=== PATIENT | male | born 1935 | race Caucasian/White ===

== ENCOUNTER 2018-05-03 17:24 | Emergency (ER) | payer MEDICARE ==
[~2018-05-03] VITALS: Ht 167.6 cm; Wt 78.0 kg
[~2018-05-03 17:24] MED LIST: ACET1TAB33 PO; LEVO500 PO; PARO10TA71 PO; SIMV40TA5 PO; TNFMISC
[2018-05-03] MEDS ORDERED: CLOP75TA32 PO (17:39)
[2018-05-03] MEDS ORDERED: LEVO75TA10 PO (17:39)
[2018-05-03] MEDS ORDERED: ASPRIN PO (17:39)
[2018-05-03] MEDS ORDERED: TAMS0.4C32 PO (17:39)
[2018-05-03 18:08] LABS: GLUCOSE,POINT OF CARE 137 MG/DL (70-110)
[2018-05-03 18:26] LABS: HEMATOCRIT 43.7 % (41-53); HEMOGLOBIN 14.9 g/dL (13.5-17.5); MEAN CORPUSCULAR HEMOGLOBIN 31.4 pg (26.0-34.0); MEAN CORPUSCULAR HGB CONC 34.1 G/dL (31.0-37.0); MEAN CORPUSCULAR VOLUME 92 fL (80-100); PLATELET COUNT (AUTO) 184 K/uL (150-450); RED BLOOD CELL COUNT(AUTO) 4.75 MIL/uL (4.50-5.90)
[2018-05-03] MEDS ORDERED: SODIUM CHLORIDE 0.9% 1,000 ML IV ONE (18:30)
[2018-05-03 18:32] LABS: ANION GAP 10 mmol/L (8-16); CALCIUM, TOTAL 8.5 mg/dL (8.8-10.5); CARBON DIOXIDE 26 mmol/L (22-29); CHLORIDE 106 mmol/L (98-107); CREATININE 1.13 mg/dL (0.60-1.30); GLUCOSE,RANDOM 141 mg/dL (70-110); POTASSIUM 4.1 mmol/L (3.5-5.1); SODIUM SERUM 142 mmol/L (136-145); UREA NITROGEN, BLOOD 10 mg/dL (7-18)
[2018-05-03 18:33] LABS: GLOMERULAR FILTR. RATE CALC > 60 mL/min (>60)
[2018-05-03] MEDS ORDERED: ASPI81 PO (18:33)
[2018-05-03 18:38] LABS: ALANINE AMINOTRANSFERASE 20 U/L (12-78); ALBUMIN 3.5 g/dL (3.4-5.0); ALKALINE PHOSPHATASE 62 U/L (46-116); ASPARTATE AMINOTRANSFERASE 23 U/L (15-37); BILIRUBIN,TOTAL 0.5 mg/dL (0.1-1.0); CREATINE KINASE, TOTAL ONLY 75 U/L (39-308); TOTAL PROTEIN, SERUM 6.8 g/dL (6.4-8.2)
[2018-05-03 18:59] LABS: B-TYPE NATRIURETIC PEPTIDE 78 pg/mL (0-100)
[2018-05-03] MEDS ORDERED: SODIUM CHLORIDE 0.9% 2,000 ML IV ONE (19:00)
[2018-05-03] MEDS ORDERED: CefTRIAXone SODIUM 1 GM in DEXTROSE 5%-WATER 10 ML IV ONE (19:00)
[2018-05-03] MEDS ORDERED: ACETAMINOPHEN 500 MG TABLET PO ONE (19:00)
[2018-05-03 19:01] LABS: BAND NEUTROPHILS % (MANUAL) 16 % (0-5); EOSINOPHILS % (MANUAL) 1 % (1-6); LYMPHOCYTES % (MANUAL) 6 % (22-44); MONOCYTES % (MANUAL) 2 % (2-9); SEGMENTED NEUTROPHILS % 75 % (40-70)
[2018-05-03 19:02] LABS: PLATELET MORPHOLOGY COMMENT GIANT PLTS PRESENT
[2018-05-03 19:28] LABS: LIPASE 105 U/L (73-393)
[2018-05-03 19:30] LABS: PROTHROMBIN TIME 10.4 SEC (9.4-11.6)
[2018-05-03 20:06] LABS: LACTIC ACID 2.8 mmol/L (0.4-2.0)
[2018-05-03 21:12] VITALS: BP 110/50
[2018-05-03 21:43] LABS: APPEARANCE,URINE CLEAR (CLEAR); BILIRUBIN,URINE NEGATIVE (NEGATIVE); GLUCOSE, URINE (UA) NEGATIVE (NEGATIVE); KETONES,URINE NEGATIVE (NEGATIVE); LEUKOCYTE ESTERASE ,URINE NEGATIVE (NEGATIVE); NITRATE,URINE NEGATIVE (NEGATIVE); OCCULT BLOOD,URINE NEGATIVE (NEGATIVE); PH,URINE 6.5 (5.0-8.0); PROTEIN,URINE NEGATIVE (NEGATIVE)
== END 2018-05-03 22:43 | disposition short-term general hospital (02) ==
LOC: EMS 17:27
DX: A41.9 Sepsis, unspecified organism (principal); R55 Syncope and collapse; I11.9 Hypertensive heart disease without heart failure; E78.00 Pure hypercholesterolemia, unspecified; Z86.73 Personal history of transient ischemic attack (TIA), and cerebral infarction without residual deficits; Z90.49 Acquired absence of other specified parts of digestive tract; Z79.82 Long term (current) use of aspirin
CPT/HCPCS: 36415; 70450; 71045; 80053; 81003; 82550; 82962; 83605; 83690; 83880; 84484; 85025; 85610; 85730; 87040; 93005; 96361; 96374; 99291; J0696; J7030; J7060

== ENCOUNTER 2018-09-01 14:07 | Emergency (ER) | payer MEDICARE ==
[~2018-09-01] VITALS: Ht 165.1 cm; Wt 70.5 kg
[~2018-09-01 14:07] MED LIST changes: +ASPI81 PO; +CLOP75TA32 PO; -LEVO500 PO; +LEVO75TA10 PO; +TAMS0.4C32 PO; -TNFMISC
[2018-09-01] MEDS ORDERED: 0.9% SODIUM CHLORIDE 10 ML SYRINGE IVP PRN (16:45)
[2018-09-01 17:15] LABS: BASOPHILS % (AUTO) 0.8 % (0.0-2.0); EOSINOPHILS % (AUTO) 6.7 % (1.0-6.0); HEMATOCRIT 43.9 % (41-53); HEMOGLOBIN 14.9 g/dL (13.5-17.5); LYMPHOCYTES # (AUTO) 1.4 K/uL (1.0-4.8); LYMPHOCYTES % (AUTO) 25.4 % (22.0-44.0); MEAN CORPUSCULAR HEMOGLOBIN 30.3 pg (26.0-34.0); MEAN CORPUSCULAR VOLUME 89 fL (80-100); MONOCYTES # (AUTO) 0.3 K/uL (0.1-1.0); MONOCYTES % (AUTO) 5.4 % (2.0-9.0); NEUTROPHILS # (AUTO) 3.4 K/uL (1.8-7.7); NEUTROPHILS % (AUTO) 61.7 % (40.0-70.0); PLATELET COUNT (AUTO) 217 K/uL (150-450); RED BLOOD CELL COUNT(AUTO) 4.93 MIL/uL (4.50-5.90); RED CELL DISTRIBUTION WIDTH 14.3 % (11.5-14.5)
[2018-09-01 17:25] LABS: ANION GAP 8 mmol/L (8-16); CALCIUM, TOTAL 9.2 mg/dL (8.8-10.5); CARBON DIOXIDE 31 mmol/L (22-29); CHLORIDE 103 mmol/L (98-107); CREATININE 0.86 mg/dL (0.60-1.30); GLUCOSE,RANDOM 103 mg/dL (70-110); POTASSIUM 3.3 mmol/L (3.5-5.1); SODIUM SERUM 142 mmol/L (136-145); UREA NITROGEN, BLOOD 10 mg/dL (7-18)
[2018-09-01 17:26] LABS: GLOMERULAR FILTR. RATE CALC > 60 mL/min (>60)
[2018-09-01 17:31] LABS: ALANINE AMINOTRANSFERASE 15 U/L (12-78); ALBUMIN 3.8 g/dL (3.4-5.0); ALKALINE PHOSPHATASE 86 U/L (46-116); ASPARTATE AMINOTRANSFERASE 13 U/L (15-37); BILIRUBIN,TOTAL 0.5 mg/dL (0.1-1.0); CREATINE KINASE, TOTAL ONLY 44 U/L (39-308); TOTAL PROTEIN, SERUM 7.5 g/dL (6.4-8.2)
[2018-09-01 17:44] LABS: B-TYPE NATRIURETIC PEPTIDE 31 pg/mL (0-100)
[2018-09-01 17:47] LABS: LACTIC ACID 0.8 mmol/L (0.4-2.0)
[2018-09-01] MEDS ORDERED: POTASSIUM CHLORIDE 20 MEQ ER TABLET PO ONE (19:00)
[2018-09-01 20:28] LABS: APPEARANCE,URINE CLEAR (CLEAR); BILIRUBIN,URINE NEGATIVE (NEGATIVE); GLUCOSE, URINE (UA) NEGATIVE (NEGATIVE); KETONES,URINE NEGATIVE (NEGATIVE); LEUKOCYTE ESTERASE ,URINE SMALL (NEGATIVE); NITRATE,URINE NEGATIVE (NEGATIVE); OCCULT BLOOD,URINE NEGATIVE (NEGATIVE); PH,URINE 5.5 (5.0-8.0); PROTEIN,URINE NEGATIVE (NEGATIVE); UROBILINOGEN,URINE 0.2 mg/dL (<=1.0)
[2018-09-01 20:43] LABS: BACTERIA,URINE None Seen /HPF (None Seen); RBC,URINE 0-2 /HPF (0-2)
[2018-09-01 20:44] LABS: SQUAMOUS EPITHELIAL CELL,UR None Seen /LPF (None Seen)
[2018-09-01 21:02] VITALS: BP 169/80
== END 2018-09-01 22:03 | disposition home or self-care (01) ==
LOC: EMS 14:09
DX: F03.90 Unspecified dementia, unspecified severity, without behavioral disturbance, psychotic disturbance, mood disturbance, and anxiety (principal); E87.6 Hypokalemia; E78.00 Pure hypercholesterolemia, unspecified; I11.9 Hypertensive heart disease without heart failure; Z86.73 Personal history of transient ischemic attack (TIA), and cerebral infarction without residual deficits; Z90.49 Acquired absence of other specified parts of digestive tract; Z79.82 Long term (current) use of aspirin; Z79.899 Other long term (current) drug therapy
CPT/HCPCS: 83605; 93005

== ENCOUNTER 2018-09-16 07:27 | Emergency (ER) | payer MEDICARE ==
[~2018-09-16] VITALS: Ht 167.6 cm; Wt 68.2 kg
[2018-09-16 11:27] VITALS: BP 156/97
== END 2018-09-16 11:41 | disposition home or self-care (01) ==
LOC: EMS 07:30
DX: S09.90XA Unspecified injury of head, initial encounter (principal); I10 Essential (primary) hypertension; E78.00 Pure hypercholesterolemia, unspecified; Z79.82 Long term (current) use of aspirin; Z79.899 Other long term (current) drug therapy; W01.0XXA Fall on same level from slipping, tripping and stumbling without subsequent striking against object, initial encounter; Y93.89 Activity, other specified; Y92.89 Other specified places as the place of occurrence of the external cause; Y99.8 Other external cause status
CPT/HCPCS: 72170

== ENCOUNTER 2018-11-03 12:10 | Emergency (ER) | payer MEDICARE ==
[~2018-11-03] VITALS: Ht 154.9 cm; Wt 74.1 kg
[2018-11-03 16:25] VITALS: BP 155/99
== END 2018-11-03 17:41 | disposition home or self-care (01) ==
LOC: EMS 12:10
DX: S00.83XA Contusion of other part of head, initial encounter (principal); I11.9 Hypertensive heart disease without heart failure; E78.00 Pure hypercholesterolemia, unspecified; Z86.73 Personal history of transient ischemic attack (TIA), and cerebral infarction without residual deficits; Z90.49 Acquired absence of other specified parts of digestive tract; Z79.82 Long term (current) use of aspirin; W19.XXXA Unspecified fall, initial encounter; Y93.89 Activity, other specified; Y92.89 Other specified places as the place of occurrence of the external cause; Y99.8 Other external cause status
CPT/HCPCS: 70450

== ENCOUNTER 2019-03-30 08:28 | Emergency (ER) | payer MEDICARE ==
[~2019-03-30] VITALS: Ht 162.6 cm; Wt 71.2 kg
[~2019-03-30 08:28] MED LIST changes: +SIMV-46 PO; -SIMV40TA5 PO
[2019-03-30] MEDS ORDERED: VIT1CAPS47 PO (08:50)
[2019-03-30] MEDS ORDERED: LEVO88TA4 PO (08:50)
[2019-03-30] MEDS ORDERED: FISH1CAP27 PO (08:50)
[2019-03-30] MEDS ORDERED: PARO20TA24 PO (08:50)
[2019-03-30] MEDS ORDERED: LOSA50TA64 PO (08:50)
[2019-03-30] MEDS ORDERED: MELA5TAB3 PO (08:50)
[2019-03-30] MEDS ORDERED: FOLI1TAB24 PO (08:50)
[2019-03-30] MEDS ORDERED: PANT40TA25 PO (08:50)
[2019-03-30] MEDS ORDERED: FERR-89 PO (08:50)
[2019-03-30 09:46] LABS: PROTHROMBIN TIME 10.3 SEC (9.4-11.6)
[2019-03-30 10:29] LABS: CALCIUM, TOTAL 8.7 mg/dL (8.8-10.5); CREATININE 1.84 mg/dL (0.60-1.30); POTASSIUM 3.8 mmol/L (3.5-5.1)
[2019-03-30 10:35] LABS: ALBUMIN 3.2 g/dL (3.4-5.0); BILIRUBIN,TOTAL 0.4 mg/dL (0.1-1.0); TOTAL PROTEIN, SERUM 6.1 g/dL (6.4-8.2)
[2019-03-30 10:51] VITALS: BP 173/98
[2019-03-30 10:51] LABS: BASOPHILS % (AUTO) 0.6 % (0.0-2.0); EOSINOPHILS % (AUTO) 2.6 % (1.0-6.0); HEMATOCRIT 29.5 % (41-53); HEMOGLOBIN 9.9 g/dL (13.5-17.5); LYMPHOCYTES # (AUTO) 0.9 K/uL (1.0-4.8); LYMPHOCYTES % (AUTO) 15.1 % (22.0-44.0); MEAN CORPUSCULAR HEMOGLOBIN 31.4 pg (26.0-34.0); MEAN CORPUSCULAR HGB CONC 33.6 G/dL (31.0-37.0); MEAN CORPUSCULAR VOLUME 94 fL (80-100); MONOCYTES # (AUTO) 0.2 K/uL (0.1-1.0); NEUTROPHILS # (AUTO) 4.7 K/uL (1.8-7.7); NEUTROPHILS % (AUTO) 77.7 % (40.0-70.0); PLATELET COUNT (AUTO) 283 K/uL (150-450); RED BLOOD CELL COUNT(AUTO) 3.16 MIL/uL (4.50-5.90)
== END 2019-03-30 11:00 | disposition short-term general hospital (02) ==
LOC: EMS 08:29
DX: S06.5X9A Traumatic subdural hemorrhage with loss of consciousness of unspecified duration, initial encounter (principal); I11.9 Hypertensive heart disease without heart failure; E78.00 Pure hypercholesterolemia, unspecified; Z86.73 Personal history of transient ischemic attack (TIA), and cerebral infarction without residual deficits; Z90.89 Acquired absence of other organs; Z79.82 Long term (current) use of aspirin; W19.XXXA Unspecified fall, initial encounter; Y93.89 Activity, other specified; Y92.89 Other specified places as the place of occurrence of the external cause; Y99.8 Other external cause status
CPT/HCPCS: 70450; 71250; 72125; 93005; 99291